=== PATIENT | male | born 1945 | race Caucasian/White ===

== ENCOUNTER → 2016-10-07 13:06 | Outpatient (CLI) | payer MEDICARE ==
[2012-10-12 11:30] VITALS: BMI 24.5
[~2016-10-07 13:06] MED LIST: ALTACE10 MG PO; ASPIRIN325 MG PO; NIASPAN500 MG PO; PLAVIX75 MG PO; WELCHOL625 MG
== END | disposition home or self-care (01) ==
LOC: D.LABREF 13:06
DX: R91.1 Solitary pulmonary nodule (principal)

== ENCOUNTER 2016-10-12 09:27 | Outpatient (CLI) | payer MEDICARE ==
[~2016-10-12] VITALS: Ht 185.4 cm; Wt 85.5 kg
--- NOTE | ~2016-10-12 | OP ---
PATIENT NAME: JULITO DELUCA MEDICAL RECORD: [id number] [facility]ATION:[facility] ADMISSION DATE: SURGEON: NATALIE URBINA MD DATE OF OPERATION: 10/12/2016 PROCEDURE: Fiberoptic bronchoscopy. INDICATION: Mr. Deluca is a 70-year-old gentleman who has chronic cough for the last 3-4 months. The patient had a CT scan of the chest, which showed patchy infiltrate in both upper and lower lobes. Fiberoptic bronchoscopy was carried down to inspect the airway as well as to obtain specimen for culture and sensitivity, AFB and fungus. MONITORING: EKG, pulse and blood pressure were monitored throughout the procedure. MEDICATIONS: Atropine 0.6 mg IV times 1, fentanyl 100 mcg IV in divided doses and Versed 4 mg IV in divided doses. PROCEDURE IN DETAIL: After getting conscious sedation, the fiberoptic bronchoscope easily passed through the mouth. The epiglottis was normal. The vocal cords were normal, moves equally on phonation. The main trachea was normal. The joselyn was sharp. There were thick whitish secretions bilaterally. The right main bronchus subsegment to the right upper lobe is within normal range. Bronchus intermedius was within normal range. The right middle lobe sub-segment and the right lower lobe subsegment are within normal range. No endobronchial lesion was seen. The left main bronchus was normal. There were also white thick secretions on the left side. The left upper lobe lingula subsegment is within normal range. The subsegment of the left lower lobe was within normal range. No endobronchial lesion was seen bilaterally. Specimen washing was obtained from both sides and sent for routine culture and sensitivity, AFB and fungus, as well as for cytology. Overall, the patient tolerated the procedure very well. TRANSINT:[id number] Voice Confirmation ID: [id number] DOCUMENT ID: [id number] NATALIE URBINA MD CC: [id number] DICTATION DATE: 10/12/16 1153 PROCESS ENGINEERING INTERN: [id number]/12/[id number] DEP CLI 10/12/[address] [id number]
[2016-10-12 10:31] VITALS: BP 125/71; Ht 185.4 cm; Wt 85.5 kg
[2016-10-12 10:44] LABS: BASOPHILS 0.4 % (0-2); EOSINOPHILS 1.5 % (0-7); HEMATOCRIT 45.3 % (42.0-54.0); HEMOGLOBIN 15.6 g/dL (13.5-17.5); IMMATURE GRANULOCYTES 0.6 % (0-5); LYMPHOCYTES 34.1 % (15-50); MCH 31.3 pg (26.0-34.0); MCHC 34.4 g/dL (31.0-37.0); MEAN PLATELET VOLUME 10.4 fL (7.4-10.4); MONOCYTES 12.9 % (2-11); NEUTROPHILS 50.5 % (40-80); PLATELET COUNT 162 10x3/uL (130-400); RBC 4.98 10x6/uL (4.20-6.10); RDW 13.7 % (11.5-14.5); WBC 9.4 10x3/uL (4.8-10.8)
[2016-10-12] MEDS ORDERED: GEMFIBROZIL600 MG PO (10:44)
[2016-10-12 11:02] LABS: INR 0.93 (0.85-1.17); PROTIME 12.3 SECONDS (11.6-15.0)
[2016-10-12 11:03] LABS: APTT 34.3 SECONDS (22.8-39.4)
--- NOTE | 2016-10-12 16:26 | NUR ---
1330 DRESSED. AWAKE & ALERT, GIVEN DISCHARGE INSTRUCTIONS BY Nelida EPPS R.N.. TO PRIVATE CAR PER WHEELCHAIR BY VOLUNTEER. HOME WITH FEMALE MD PHYSICIAN DERMATOLOGIST. Grayson ROCHE R.N.
[2016-10-13 13:16] LABS: FUNGUS STAIN Final report (())
[2016-10-13 15:23] LABS: ACID FAST SMEAR Negative (()); AFB SPECIMEN PROCESSING Concentration (())
== END 2016-10-12 13:30 | disposition home or self-care (01) ==
LOC: D.OPS 09:27
PROVIDERS: Internal Medicine Pulmonary Disease
DX: R05 Cough (principal); Z01.812 Encounter for preprocedural laboratory examination

== ENCOUNTER → 2016-10-21 15:10 | Outpatient (CLI) | payer MEDICARE ==
[2016-10-12 10:31] VITALS: BMI 24.8
[~2016-10-21 15:10] MED LIST changes: +GEMFIBROZIL600 MG PO
== END | disposition home or self-care (01) ==
LOC: D.LABREF 15:10
PROVIDERS: Internal Medicine Pulmonary Disease
DX: J44.9 Chronic obstructive pulmonary disease, unspecified (principal)

== ENCOUNTER → 2017-01-20 11:53 | Outpatient (CLI) | payer MEDICARE ==
[2016-10-12 10:31] VITALS: BMI 24.8
== END | disposition home or self-care (01) ==
LOC: D.CT 01-19 09:30 → D.RT 11:53 → D.CT 14:00
DX: J18.9 Pneumonia, unspecified organism (principal)

== ENCOUNTER → 2019-05-28 08:18 | Outpatient (CLI) | payer MEDICARE ==
[2016-10-12 10:31] VITALS: BMI 24.8
[2019-05-29 09:09] LABS: ANA REFLEX - ANTICHROMATIN ABS <0.2 AI (0.0-0.9); ANA REFLEX - CENTROMERE B ABS <0.2 AI (0.0-0.9); ANA REFLEX - DBL STRANDED DNA <1 IU/mL (0-9); ANA REFLEX - DIRECT Positive (Negative); ANA REFLEX - JO-1 AB <0.2 AI (0.0-0.9); ANA REFLEX - SCL-70 <0.2 AI (0.0-0.9); ANA REFLEX - SJOGRENS AB SSA <0.2 AI (0.0-0.9); ANA REFLEX - SJOGRENS AB SSB <0.2 AI (0.0-0.9); ANA REFLEX - SMITH AB <0.2 AI (0.0-0.9)
[2019-05-30 15:09] LABS: ANCA - ANTIMYELOPEROXIDASE <9.0 U/mL (0.0-9.0); ANCA - ANTIPROTEINASE 3 <3.5 U/mL (0.0-3.5); ANCA - ATYPICAL <1:20 titer (Neg:<1:20); ANCA - CYTOPLASMIC <1:20 titer (Neg:<1:20); ANCA - PERINUCLEAR <1:20 titer (Neg:<1:20)
[2019-05-31 05:08] LABS: ANGIOTENSIN CONVERTING ENZYME 18 U/L (14-82)
== END | disposition home or self-care (01) ==
LOC: D.CT 08:18
PROVIDERS: ATTEND Internal Medicine Pulmonary Disease
DX: R91.8 Other nonspecific abnormal finding of lung field (principal)